=== PATIENT | male | born 1980 | race Hispanic/Latino ===

== ENCOUNTER 2024-02-10 22:22 | Emergency (ER) | payer OTHER ==
[~2024-02-10] VITALS: Ht 170.2 cm; Wt 90.7 kg
--- NOTE | 2024-02-10 22:46 | HMCIMG ---
CHEST 1VW HISTORY: Chest pain COMPARISON: None FINDINGS: A frontal projection of the chest was obtained. No acute pulmonary infiltrates is seen. The heart is normal in size. Prominent interstitial markings are seen. Degenerative changes are seen. No evidence of aortic calcification is seen. IMPRESSION: 1. No acute pulmonary infiltrate is seen.
[2024-02-10 22:50] LABS: BASOPHILS # (AUTO) 0.08 K/uL (0.00-0.20); BASOPHILS % (AUTO) 0.6 % (0.0-5.0); EOSINOPHILS # (AUTO) 1.28 K/uL (0.00-0.70); EOSINOPHILS % (AUTO) 10.2 % (0.0-8.0); HEMATOCRIT 45.8 % (42-54); IMMATURE GRANULOCYTE ABSOLUTE 0.06 K/uL (0-1); LYMPHOCYTES # (AUTO) 3.2 K/uL (1.0-4.8); LYMPHOCYTES % (AUTO) 25.3 % (21.0-51.0); MEAN CORPUSCULAR HEMOGLOBIN 28.7 pg (27.0-33.0); MEAN CORPUSCULAR HGB CONC 34.1 g/dL (32.0-36.0); MEAN CORPUSCULAR VOLUME 84.3 fL (79-99); MONOCYTES # (AUTO) 0.9 K/uL (0.1-1.0); NEUTROPHILS # (AUTO) 7.1 K/uL (1.8-7.7); NEUTROPHILS % (AUTO) 56.4 % (40.0-77.0); PLATELET COUNT (AUTO) 233 K/uL (130-400); RED BLOOD CELL COUNT(AUTO) 5.43 MIL/uL (4.50-6.20); RED CELL DISTRIBUTION WIDTH 12.9 % (11.0-15.5); WHITE BLOOD COUNT (AUTO) 12.6 K/uL (4.8-10.8)
[2024-02-10 23:03] LABS: CREATININE 0.9 mg/dL (0.5-1.3); POTASSIUM 3.9 mmol/L (3.5-5.1)
[2024-02-10 23:10] LABS: ALBUMIN 3.5 g/dL (3.5-5.0); BILIRUBIN,DIRECT 0.1 mg/dL (0.0-0.3); BILIRUBIN,TOTAL 0.3 mg/dL (0.2-1.0)
[2024-02-10 23:14] LABS: B-TYPE NATRIURETIC PEPTIDE 8 pg/mL (0-100)
[2024-02-10] MEDS ORDERED: OMEP40CA21 PO (23:19)
--- NOTE | 2024-02-10 23:20 | ERN ---
ED Note History of Present Illness Stated Complaint: CHEST PAIN,ABD PAIN, LEFT HAND " TIGHTNESS, SWELLI Chief Complaint: Multiple Complaints Time Seen by MD: 22:39 Dictation: This is a 43-year-old male who presented to the emergency room with multiple complaints including midsternal chest pain which started about an hour and a half prior to the presentation. He also reported epigastric burning after eating around 5:00 p.m.. He has taken a lot of baking soda prior to coming to the ER about 30 minutes before in order to neutralize his epigastric burning. In addition to this he also reports that his left hand feels tight. No history of any loss of consciousness, no diaphoresis palpitations No fever chills or rigors. No vomitings. Temperature 97.9 pulse 79 respirations 16 blood pressure 116/84 with a pulse oximetry of 97% on room air Patient has a known history of H pylori Allergies: Coded Allergies: No Known Allergies (Unverified Allergy, Unknown, 02/10/24) Home Meds Active Scripts Omeprazole (Omeprazole) 40 Mg Capsule.dr, 1 CAP PO DAILY for 30 Days, #30 CAP 0 Refills Prov:FRANDY RAMIREZ MD 02/10/24 Past Medical History Past Medical History: Other Additional Past Medical Hx: H PYLORI Surgical History: Other Surgical History Other: VASECTOMY Family History: Negative RN Note Reviewed/Agreed w/PFSH: Yes Review of System Dictation Constitutional: Negative for fever,chills, and weight loss Eyes: Negative for injury, pain,redness, and discharge ENT: Negative for injury,pain or swelling Cardiovascular: Negative for chest pain, palpitations, and edema Respiratory: Negative for shortness of breath, cough, and wheezing, Abdomen/GI: Positive for abdominal pain-epigastric area, denies nausea, vomiting, diarrhea, and constipation Back: Negative for injury and pain : Negative for injury, bleeding and discharge MS/Extremity: Negative for injury and deformity Skin: Negative for rash, and discoloration Neuro: Negative for headache, weakness, numbness, tingling, and seizure Psych: Negative for suicide ideation, homicidal ideation, and hallucinations Initial Vital Sign VS Vital Signs Date Time Temp Pulse Resp B/P (MAP) Pulse Ox O2 Delivery O2 Flow Rate FiO2 02/10/24 22:24 97.9 79 16 116/84 98 Room Air 02/11/24 00:48 0 21 Physical Exam Dictation General: awake, alert, NAD Head/Face: Normocephalic, atraumatic Eyes: PERRL, EOMI, vision at baseline ENT: oral cavity clear, TMs clear, no signs of infection Neck: Trachea midline, supple, no nuchal rigidity Cardiovascular: RRR, normal S1/S2, No MRGs, no JVD Respiratory: CTAB, no respiratory distress, No rales or wheezes Abdomen: Soft, non-tender, non-distended, normal bowel sounds, no guarding or rebound. Skin: Warm, dry, normal turgor, no rash MS/Extremity: Pulses equal, no cyanosis, neurovascular intact, FROM Neuro: COAx4, GCS 15, strength 5/5, CN 2-12 intact, normal cerebellar exam, normal gait, Psych: Normal behavior, mood, and affect normal Extremities-trace edema without any palpable cords, Homans sign is negative Results (Laboratory/Radiology) Laboratory/Radiology Laboratory Tests Test 02/10/24 22:43 02/10/24 23:02 02/11/24 01:18 White Blood Count 12.6 K/uL (4.8-10.8) H Red Blood Count 5.43 MIL/uL (4.50-6.20) Hemoglobin 15.6 g/dL (14.0-18.0) Hematocrit 45.8 % (42-54) Mean Corpuscular Volume 84.3 fL (79-99) Mean Corpuscular Hemoglobin 28.7 pg (27.0-33.0) Mean Corpuscular Hemoglobin Concent 34.1 g/dL (32.0-36.0) Red Cell Distribution Width 12.9 % (11.0-15.5) Platelet Count 233 K/uL (130-400) Mean Platelet Volume 9.0 fL (7.5-10.5) Immature Granulocyte % (Auto) 0.5 % (0-1) Neutrophils (%) (Auto) 56.4 % (40.0-77.0) Lymphocytes (%) (Auto) 25.3 % (21.0-51.0) Monocytes (%) (Auto) 7.0 % (3.0-13.0) Eosinophils (%) (Auto) 10.2 % (0.0-8.0) H Basophils (%) (Auto) 0.6 % (0.0-5.0) Neutrophils # (Auto) 7.1 K/uL (1.8-7.7) Lymphocytes # (Auto) 3.2 K/uL (1.0-4.8) Monocytes # (Auto) 0.9 K/uL (0.1-1.0) Eosinophils # (Auto) 1.28 K/uL (0.00-0.70) H Basophils # (Auto) 0.08 K/uL (0.00-0.20) Absolute Immature Granulocyte (auto 0.06 K/uL (0-1) Nucleated Red Blood Cells 0.0 % (0.0-0.19) Sodium Level 142 mmol/L (136-145) Potassium Level 3.9 mmol/L (3.5-5.1) Chloride Level 102 mmol/L (101-111) Carbon Dioxide Level 36 mmol/L (21-32) H Blood Urea Nitrogen 24 mg/dL (7-18) H Creatinine 0.9 mg/dL (0.5-1.3) Glomerular Filtration Rate Calc 110 mL/min (>90) Random Glucose 91 mg/dL (70-105) Total Calcium 8.7 mg/dL (8.5-10.1) Total Bilirubin 0.3 mg/dL (0.2-1.0) Direct Bilirubin 0.1 mg/dL (0.0-0.3) Aspartate Amino Transf (AST/SGOT) 17 U/L (10-37) Alanine Aminotransferase (ALT/SGPT) 33 U/L (12-78) Alkaline Phosphatase 93 U/L (50-136) Total Creatine Kinase 142 U/L (21-232) Troponin I High Sensitivity 5 ng/L (4-75) B-Type Natriuretic Peptide 8 pg/mL (0-100) Total Protein 7.0 g/dL (6.0-8.3) Albumin 3.5 g/dL (3.5-5.0) Lipase 24 U/L (16-77) Troponin I < 0.05 ng/mL (0.00-0.05) Urine Color LIGHT-YELLOW (YELLOW) Urine Appearance CLEAR (CLEAR) Urine pH 6.5 (5.0-8.0) Urine Specific [place] 1.023 (1.001-1.031) Urine Protein NEGATIVE mg/dL (NEGATIVE) Urine Glucose (UA) NEGATIVE mg/dL (NEGATIVE) Urine Ketones NEGATIVE mg/dL (NEGATIVE) Urine Occult Blood NEGATIVE (NEGATIVE) Urine Nitrate NEGATIVE (NEGATIVE) Urine Bilirubin NEGATIVE mg/dL (NEGATIVE) Urine Urobilinogen 0.2 mg/dL (0.2-1.0) Urine Leukocyte Esterase NEGATIVE Lee/uL Labs Reviewed?: Yes EKG Comment: Twelve lead EKG done on 02/10/2024 at 10:12 p.m. showed a sinus rhythm with a heart rate of 72, IL 150, QRS 93, QT/QTC 371/408 Impression normal sinus rhythm with nonspecific ST-T changes. No acute ST elevations or deep ST depressions noted. Interpreted by Dr. Ramirez X-RAY Comment: PATIENT: PAMELA JOE MR#: [id number] : 1980 SEX: M AGE: 43 LOCATION: [facility] ORDER 28 STATUS: [facility] REPORT#: [id number] SERVICE 27 REASON: CHEST PAIN ORDERING PHYSICIAN: FRANDY RAMIREZ MD PROCEDURE: CXR1VW - CHEST 1VW CHEST 1VW HISTORY: Chest pain COMPARISON: None FINDINGS: A frontal projection of the chest was obtained. No acute pulmonary infiltrates is seen. The heart is normal in size. Prominent interstitial markings are seen. Degenerative changes are seen. No evidence of aortic calcification is seen. IMPRESSION: 1. No acute pulmonary infiltrate is seen. DICTATED BY: NIDIA LUNA MD DATE: 02/10/242243 ELECTRONICALLY SIGNED BY: NIDIA LUNA MD DATE: 02/10/242245 ED Course ED Course Orders Procedure Category Date Status Time Vital Signs Per CPOE 02/10/24 Transmitted Routine 22:28 B-Type Natriuretic LAB 02/10/24 Complete Peptide 22:28 Chest 1vw RAD 02/10/24 Resulted 22:28 12 Lead Ekg Tracing- EKG 02/10/24 Logged Technical 22:28 Oxygen By Nc/Pulse Ox CPOE 02/10/24 Transmitted 22:28 Maintain Iv CPOE 02/10/24 Transmitted 22:28 Iv Insertion CPOE 02/10/24 Transmitted 22:28 Cardiac Monitoring CPOE 02/10/24 Transmitted 22:28 Pulse Oximetry With CPOE 02/10/24 Transmitted Vs And Prn 22:28 Cbc With Differential LAB 02/10/24 Complete 22:28 Activity: Br W/Brp CPOE 02/10/24 Transmitted With Assist 22:28 Creatine Kinase, Total LAB 02/10/24 Complete 22:28 Urinalysis Profile LAB 02/10/24 Complete 22:28 Troponin Poc Order LAB 02/10/24 Complete Only 22:28 Bedside Troponin-I LAB.ER 02/10/24 Complete (Poc) 22:28 Basic Metabolic Panel LAB 02/10/24 Complete 22:28 Troponin I High LAB 02/10/24 Complete Sensitivity 22:28 Lipase LAB 02/10/24 Complete 22:28 Hepatic Function Panel LAB 02/10/24 Complete 22:28 Morphine 2mg Syg PHA 02/10/24 Complete (Morphine 2mg Syg) 23:30 Ondansetron 4mg Inj PHA 02/10/24 Complete (Zofran 4mg Inj) 23:30 Lidocaine Hcl 2% PHA 02/10/24 Complete Viscous (Lidocaine Hcl 23:30 Mag/Alum/Simeth 30ml PHA 02/10/24 Complete (Maalox Plus 30ml) 23:30 Pantoprazole 40mg Inj PHA 02/10/24 Complete (Protonix 40mg Inj 23:30 Dicyclomine Hcl PHA 02/10/24 Complete (Bentyl 10mg/5ml 23:30 Current Medications Medications (Trade) Dose Ordered Sig/Stormy Route PRN Reason Start Time Stop Time Status Last Admin Dose Admin Al Hydroxide/Mg Hydroxide (MAALox PLUS 30ML) 30 ml ONCE ONCE PO 02/10/24 23:30 02/11/24 01:35 DC 02/11/24 00:50 Dicyclomine HCl (Bentyl 10mg/5ml Syrup) 10 mg ONCE ONCE PO 02/10/24 23:30 02/11/24 01:35 DC 02/11/24 00:51 Lidocaine HCl (Lidocaine HCl 2% Viscous) 10 ml ONCE ONCE PO 02/10/24 23:30 02/11/24 01:35 DC 02/11/24 00:50 Morphine Sulfate (morPHINE 2MG SYG) 2 mg ONCE ONCE IVP 02/10/24 23:30 02/11/24 01:35 DC Ondansetron HCl (zoFRAN 4MG INJ) 4 mg ONCE ONCE IVP 02/10/24 23:30 02/11/24 01:35 DC 02/11/24 00:49 Pantoprazole Sodium (PROTonix 40MG INJ) 40 mg ONCE ONCE IVP 02/10/24 23:30 02/11/24 01:35 DC 02/11/24 00:49 Vital Signs Date Time Temp Pulse Resp B/P (MAP) Pulse Ox O2 Delivery O2 Flow Rate FiO2 02/11/24 01:34 97.2 64 20 117/61 100 Room Air* 0 21 02/11/24 00:48 97.9 66 18 114/63 100 Room Air* 0 21 02/10/24 22:24 97.9 79 16 116/84 98 Room Air We will perform diagnostic labs, advanced imaging and administer medications according to the patient's complaint. Once the results are available, will review and personally interpreted the labs to rule out any acute life- threatening emergency the trach require immediate intervention and treatment. I will then re-evaluate the patient after treatment and diagnostic exams have return to determine whether the patient requires any further testing, can safely be discharged home or need further admission to hospital for additional treatment and evaluation. 11:05 p.m. CBC shows a WBC count of 12.6, BNP 7 showed a bicarbonate of 36, lipase 24 troponins are negative. Chest x-ray is negative for any acute infiltrate. I went over the labs and warned him that his bicarbonate is very elevated with him over indulging on baking soda for his stomach upset. We will give him a trial of PPI and GI cocktail . He felt significantly improved. I counseled him extensively on GERD precautions including avoidance of spicy greasy fatty foods, citrus she beverages, maintaining sleep hygiene, elevation of the head of the bed, not sleeping immediately after eating. He verbalized full understanding Medical Decision Making MDM MDM: Differential diagnosis: Gastroesophageal reflux disease, peptic ulcer disease, dyspepsia, esophagitis Rationale: Tests considered and ordered secondary to shared decision making include: Previous outside records reviewed: Old ER visits. Risk of complication and/or morbidity or mortality of patient management: None Medications-Per medication reconciliation Need for hospitalization: Patient does not meet criteria for hospitalization. Need for emergency major/minor surgery: No There are no social concerns with this patient. Prescription drug management Prescriptions will include symptomatic care Patient's prior external medical records from other ER visits were reviewed by me as indicated. Prior testing and results from previous visits were reviewed. Prior tests were taken into account with medical decision making and resource utilization, independent historian/historians were used to obtain complete medical history. I independently interpreted the test that were performed, results were reviewed by me and considered findings on radiology if ordered. Medical management and examination interpretation discussions were had by me with other qualified healthcare professionals as indicated for the patient's care. Problem List Problem List: (1) Gastritis (2) H. pylori infection (3) Gastroesophageal reflux disease DX & DISP Disposition: Discharge Departure Impression: Primary Impression: Gastritis Additional Impressions: H. pylori infection, Gastroesophageal reflux disease Condition: Stable Scripts Omeprazole (Omeprazole) 40 Mg Capsule.dr 1 CAP PO DAILY for 30 Days, #30 CAP 0 Refills Prov: FRANDY RAMIREZ MD 02/10/24 Additional Instructions: Patient and the caregiver have been informed of all the diagnostic tests and the imaging conducted during the today's visit to the emergency room and has verbalized understanding of the results I have personally reviewed and interpreted all diagnostic exams performed here in the ER today as well as the vital signs documented by the nursing staff. The patient is now being discharged to home and should follow up with the primary care physician or the specialist as directed by the ER staff. Follow-up with primary care provider in 1 to 2 days. Take medications as directed here in the emergency room. Okay to continue home medications unless otherwise discussed during your visit in the emergency room today. Return to your nearest emergency room if symptoms worsen or if there is no improvement. Call 911 if you need immediate assistance. Take Tylenol or Motrin [id number] as needed and if no contraindications are present. Increase oral hydration. A wound culture or urine culture was ordered here in the [facility] room department please follow-up with primary care provider and advise them to get repeat ports from our facility. If you had any Jean Claude wrap/splints that were applied here, please do not remove them until you see your primary care or specialty. FRANDY RAMIREZ MD Feb 10, 2024 23:20
[2024-02-11] MEDS: ondanSETRON 4MG INJ IVP ONE (00:49)
[2024-02-11] MEDS: PANTOPrazole 40 MG/VIAL IVP ONE (00:49)
[2024-02-11] MEDS: LIDOCAINE HCL 2% VISCOUS 15 ML UDCUP PO ONE (00:50)
[2024-02-11] MEDS: MAG/ALUM/SIMETH 30 ML UDCUP PO ONE (00:50)
[2024-02-11] MEDS: DICYCLOMINE HCL 10 MG/5 ML ML PO ONE (00:51)
[2024-02-11] MEDS: morPHINE 2 MG SYG IVP ONE (00:51)
[2024-02-11 01:30] LABS: APPEARANCE,URINE CLEAR (CLEAR); BILIRUBIN,URINE NEGATIVE (NEGATIVE); COLOR,URINE LIGHT-YELLOW (YELLOW); GLUCOSE, URINE (UA) NEGATIVE (NEGATIVE); KETONES,URINE NEGATIVE (NEGATIVE); LEUKOCYTE ESTERASE ,URINE NEGATIVE Leu/uL (NEGATIVE); NITRATE,URINE NEGATIVE (NEGATIVE); OCCULT BLOOD,URINE NEGATIVE (NEGATIVE); PH,URINE 6.5 (5.0-8.0); PROTEIN,URINE NEGATIVE (NEGATIVE); UROBILINOGEN,URINE 0.2 mg/dL (0.2-1.0)
[2024-02-11 01:34] VITALS: BP 117/61; PULSE 64; RESP 20; TEMP 97.1; O2SAT 100
[2024-02-11 01:35] LABS: ADD UA MICROSCOPIC NO
--- NOTE | 2024-02-11 06:35 | EKG ---
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
== END 2024-02-11 01:35 | disposition home or self-care (01) ==
LOC: EDH 22:22
DX: K29.70 Gastritis, unspecified, without bleeding (principal); B96.81 Helicobacter pylori [H. pylori] as the cause of diseases classified elsewhere; K21.9 Gastro-esophageal reflux disease without esophagitis; Z79.899 Other long term (current) drug therapy
CPT/HCPCS: 99285; 71045; 82550; 80076; 84484 ×2; 80048; 83880; 83690; 85025; 81003; 36415; 93005; 96374; 96375; J2270; J2405; J2470

== ENCOUNTER 2024-07-19 21:59 | Emergency (ER) | payer OTHER ==
[~2024-07-19] VITALS: Ht 170.2 cm; Wt 93.4 kg
[~2024-07-19 21:59] MED LIST: OMEP40CA21 PO
--- NOTE | 2024-07-19 22:04 | NUR ---
UA CUP PROVIDED
[2024-07-19 23:09] LABS: BASOPHILS # (AUTO) 0.04 K/uL (0.00-0.20); BASOPHILS % (AUTO) 0.5 % (0.0-5.0); EOSINOPHILS # (AUTO) 0.19 K/uL (0.00-0.70); EOSINOPHILS % (AUTO) 2.3 % (0.0-8.0); HEMATOCRIT 46.1 % (42-54); IMMATURE GRANULOCYTE ABSOLUTE 0.02 K/uL (0-1); LYMPHOCYTES # (AUTO) 3.3 K/uL (1.0-4.8); LYMPHOCYTES % (AUTO) 40.5 % (21.0-51.0); MEAN CORPUSCULAR HEMOGLOBIN 28.2 pg (27.0-33.0); MEAN CORPUSCULAR HGB CONC 32.8 g/dL (32.0-36.0); MEAN CORPUSCULAR VOLUME 86.2 fL (79-99); MONOCYTES # (AUTO) 0.9 K/uL (0.1-1.0); MONOCYTES % (AUTO) 10.6 % (3.0-13.0); NEUTROPHILS # (AUTO) 3.7 K/uL (1.8-7.7); NEUTROPHILS % (AUTO) 45.9 % (40.0-77.0); PLATELET COUNT (AUTO) 229 K/uL (130-400); RED BLOOD CELL COUNT(AUTO) 5.35 MIL/uL (4.50-6.20); RED CELL DISTRIBUTION WIDTH 12.8 % (11.0-15.5); WHITE BLOOD COUNT (AUTO) 8.2 K/uL (4.8-10.8)
[2024-07-19 23:22] LABS: CREATININE 0.8 mg/dL (0.5-1.3); POTASSIUM 3.8 mmol/L (3.5-5.1)
[2024-07-19 23:27] LABS: ADD UA MICROSCOPIC NO; APPEARANCE,URINE CLEAR (CLEAR); BILIRUBIN,URINE NEGATIVE (NEGATIVE); COLOR,URINE COLORLESS (YELLOW); GLUCOSE, URINE (UA) NEGATIVE (NEGATIVE); KETONES,URINE NEGATIVE (NEGATIVE); LEUKOCYTE ESTERASE ,URINE NEGATIVE Leu/uL (NEGATIVE); NITRATE,URINE NEGATIVE (NEGATIVE); OCCULT BLOOD,URINE NEGATIVE (NEGATIVE); PH,URINE 5.5 (5.0-8.0); PROTEIN,URINE NEGATIVE (NEGATIVE); UROBILINOGEN,URINE 0.2 mg/dL (0.2-1.0)
[2024-07-19 23:36] LABS: B-TYPE NATRIURETIC PEPTIDE < 5 pg/mL (0-100)
[2024-07-20 00:30] VITALS: BP 126/72; PULSE 79; RESP 15; TEMP 98.5; O2SAT 100
[2024-07-20] MEDS ORDERED: HYDR-3421 PO (00:44)
--- NOTE | 2024-07-20 00:47 | ERN ---
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 PATIENT STATES IT ISN'T THE 1ST EPISODE THAT THIS HAS BEEN GOING ON INTERMITTENTLY FOR THE PAST YEAR. PATIENT STATES IT ALL BEGAN WITH A WORK-RELATED STRESS AND SINCE THEN HAS BEEN HAVING INTERMITTENT IN FEELINGS OF PALPITATIONS AND CHEST PRESSURE. PATIENT STATES HE WAS SEEN ON SUNDAY AT [place] AND THEN THEY TOLD [facility]. ALSO STATES HE DRINKS CAFFEINATED BEVERAGES Allergies: Coded Allergies: No Known Allergies (Unverified Allergy, Unknown, 02/10/24) Home Meds Active Scripts Omeprazole (Omeprazole) 40 Mg Capsule.dr, 1 CAP PO DAILY for 30 Days, #30 CAP 0 Refills Prov:FRANDY RAMIREZ MD 02/10/24 Past Medical History Past Medical History: Other Additional Past Medical Hx: H PYLORI Surgical History: Other Surgical History Other: VASECTOMY Family History: Negative Review of System Dictation CONSTITUTIONAL: NEGATIVE FOR FEVER,CHILLS, AND WEIGHT LOSS EYES: NEGATIVE FOR INJURY, PAIN,REDNESS, AND DISCHARGE ENT: NEGATIVE FOR INJURY,PAIN OR SWELLING CARDIOVASCULAR: COMPLAINING OF CHEST PAIN AND PALPITATIONS RESPIRATORY: NEGATIVE FOR SHORTNESS OF BREATH, COUGH, AND WHEEZING, ABDOMEN/GI: NEGATIVE FOR ABDOMINAL PAIN, NAUSEA, VOMITING, DIARRHEA, AND CONSTIPATION BACK: NEGATIVE FOR INJURY AND PAIN : NEGATIVE FOR INJURY, BLEEDING AND DISCHARGE MS/EXTREMITY: NEGATIVE FOR INJURY AND DEFORMITY SKIN: NEGATIVE FOR RASH, AND DISCOLORATION NEURO: NEGATIVE FOR HEADACHE, WEAKNESS, NUMBNESS, TINGLING, AND SEIZURE PSYCH: NEGATIVE FOR SUICIDE IDEATION, HOMICIDAL IDEATION, AND HALLUCINATIONS Review of Systems: was completed Initial Vital Sign VS Vital Signs Date Time Temp Pulse Resp B/P (MAP) Pulse Ox O2 Delivery O2 Flow Rate FiO2 07/19/24 22:00 98.1 87 20 143/80 100 Room Air Physical Exam Dictation GENERAL: AWAKE, ALERT, NAD HEAD/FACE: NORMOCEPHALIC, ATRAUMATIC EYES: PERRL, EOMI, VISION AT BASELINE ENT: ORAL CAVITY CLEAR, TMS CLEAR, NO SIGNS OF INFECTION NECK: TRACHEA MIDLINE, SUPPLE, NO NUCHAL RIGIDITY CARDIOVASCULAR: RRR, NORMAL S1/S2, NO MRGS, NO JVD RESPIRATORY: CTAB, NO RESPIRATORY DISTRESS, NO RALES OR WHEEZES ABDOMEN: SOFT, NON-TENDER, NON-DISTENDED, NORMAL BOWEL SOUNDS, NO GUARDING OR REBOUND. SKIN: WARM, DRY, NORMAL TURGOR, NO RASH MS/EXTREMITY: PULSES EQUAL, NO CYANOSIS, NEUROVASCULAR INTACT, FROM NEURO: COAX4, GCS 15, STRENGTH 5/5, CN 2-12 INTACT, NORMAL CEREBELLAR EXAM, NORMAL GAIT, PSYCH: NORMAL BEHAVIOR, MOOD, AND AFFECT NORMAL Results (Laboratory/Radiology) Laboratory/Radiology Laboratory Tests Test 07/19/24 22:40 07/19/24 22:46 Urine Color COLORLESS (YELLOW) Urine Appearance CLEAR (CLEAR) Urine pH 5.5 (5.0-8.0) Urine Specific [place] 1.010 (1.001-1.031) Urine Protein NEGATIVE mg/dL (NEGATIVE) Urine Glucose (UA) NEGATIVE mg/dL (NEGATIVE) Urine Ketones NEGATIVE mg/dL (NEGATIVE) Urine Occult Blood NEGATIVE (NEGATIVE) Urine Nitrate NEGATIVE (NEGATIVE) Urine Bilirubin NEGATIVE mg/dL (NEGATIVE) Urine Urobilinogen 0.2 mg/dL (0.2-1.0) Urine Leukocyte Esterase NEGATIVE Lee/uL White Blood Count 8.2 K/uL (4.8-10.8) Red Blood Count 5.35 MIL/uL (4.50-6.20) Hemoglobin 15.1 g/dL (14.0-18.0) Hematocrit 46.1 % (42-54) Mean Corpuscular Volume 86.2 fL (79-99) Mean Corpuscular Hemoglobin 28.2 pg (27.0-33.0) Mean Corpuscular Hemoglobin Concent 32.8 g/dL (32.0-36.0) Red Cell Distribution Width 12.8 % (11.0-15.5) Platelet Count 229 K/uL (130-400) Mean Platelet Volume 9.1 fL (7.5-10.5) Immature Granulocyte % (Auto) 0.2 % (0-1) Neutrophils (%) (Auto) 45.9 % (40.0-77.0) Lymphocytes (%) (Auto) 40.5 % (21.0-51.0) Monocytes (%) (Auto) 10.6 % (3.0-13.0) Eosinophils (%) (Auto) 2.3 % (0.0-8.0) Basophils (%) (Auto) 0.5 % (0.0-5.0) Neutrophils # (Auto) 3.7 K/uL (1.8-7.7) Lymphocytes # (Auto) 3.3 K/uL (1.0-4.8) Monocytes # (Auto) 0.9 K/uL (0.1-1.0) Eosinophils # (Auto) 0.19 K/uL (0.00-0.70) Basophils # (Auto) 0.04 K/uL (0.00-0.20) Absolute Immature Granulocyte (auto 0.02 K/uL (0-1) Nucleated Red Blood Cells 0.0 % (0.0-0.19) Sodium Level 139 mmol/L (136-145) Potassium Level 3.8 mmol/L (3.5-5.1) Chloride Level 104 mmol/L (101-111) Carbon Dioxide Level 28 mmol/L (21-32) Blood Urea Nitrogen 26 mg/dL (7-18) H Creatinine 0.8 mg/dL (0.5-1.3) Glomerular Filtration Rate Calc 114 mL/min (>90) Random Glucose 91 mg/dL (70-105) Total Calcium 8.2 mg/dL (8.5-10.1) L Total Creatine Kinase 110 U/L (21-232) # Troponin I High Sensitivity < 4 ng/L (4-75) L B-Type Natriuretic Peptide < 5 pg/mL (0-100) Labs Reviewed?: Yes EKG Comment: EKGS DONE AT 10:00 P.M., SINUS RHYTHM AT A RATE OF 82 BEATS PER MINUTE. NORMAL ECG, NO STEMI INTERPRETED BY ER MD ED Course ED Course Orders Procedure Category Date Status Time Vital Signs Per CPOE 07/19/24 Transmitted Routine 22:04 B-Type Natriuretic LAB 07/19/24 Complete Peptide 22:04 Chest 1vw RAD 07/19/24 Taken 22:04 12 Lead Ekg Tracing- EKG 07/19/24 Logged Technical 22:04 Oxygen By Nc/Pulse Ox CPOE 07/19/24 Transmitted 22:04 Maintain Iv CPOE 07/19/24 Transmitted 22:04 Iv Insertion CPOE 07/19/24 Transmitted 22:04 Cardiac Monitoring CPOE 07/19/24 Transmitted 22:04 Pulse Oximetry With CPOE 07/19/24 Transmitted Vs And Prn 22:04 Cbc With Differential LAB 07/19/24 Complete 22:04 Activity: Br W/Brp CPOE 07/19/24 Transmitted With Assist 22:04 Creatine Kinase, Total LAB 07/19/24 Complete 22:04 Troponin I High LAB 07/19/24 Complete Sensitivity 22:04 Urinalysis Profile LAB 07/19/24 Complete 22:04 Basic Metabolic Panel LAB 07/19/24 Complete 22:04 Hydroxyzine 50mg Vial PHA 07/19/24 Complete (Atarax 50mg Inj) 23:31 Drug Screen Urine LAB 07/20/24 Logged 00:35 Current Medications Medications (Trade) Dose Ordered Sig/Stormy Route PRN Reason Start Time Stop Time Status Last Admin Dose Admin Hydroxyzine HCl (ATArax 50MG INJ) 25 mg ONCE STAT IM 07/19/24 23:31 07/19/24 23:34 DC Vital Signs Date Time Temp Pulse Resp B/P (MAP) Pulse Ox O2 Delivery O2 Flow Rate FiO2 07/19/24 22:00 98.1 87 20 143/80 100 Room Air HEART Score Response (Comments) Value History: Low suspicion (0) 0 EKG: Normal 0 Age: < 45yrs (0) 0 Risk Factors: No known risk factors (0) 0 Total 0 Medical Decision Making MDM MDM: 43-YEAR-OLD MALE WITH NO PAST MEDICAL HISTORY COMING IN COMPLAINING OF FEELING CHEST PRESSURE AND PALPITATIONS WHILE HE WAS AT A BIRTHDAY CONSTITUTION PARTY. PATIENT STATES IT ISN'T THE 1ST EPISODE THAT THIS HAS BEEN GOING ON INTERMITTENTLY FOR THE PAST YEAR. PATIENT STATES IT ALL BEGAN WITH A WORK- RELATED STRESS AND SINCE THEN HAS BEEN HAVING INTERMITTENT IN FEELINGS OF PALPITATIONS AND CHEST PRESSURE. PATIENT STATES HE WAS SEEN ON SUNDAY AT [place] AND THEN THEY TOLD HIM TO [place]. ALSO STATES HE DRINKS CAFFEINATED BEVERAGES BLOOD WORK UNREMARKABLE. EKGS SHOWS NO ST ELEVATION OR DYSRHYTHMIAS. CHEST X-RAY WITHIN NORMAL LIMITS INTERPRETED BY ME. HEART SCORE OF 0. PATIENT WILL BE DISCHARGED HOME WITH HYDROXYZINE P.R.N. FOR ANXIETY AND HAVE PATIENT FOLLOW UP WITH THE [place] AND C[place]IOLOGY. DIFFERENTIAL DIAGNOSIS: DC, ANXIETY, COSTOCHONDRITIS RATIONALE: TESTS CONSIDERED AND ORDERED SECONDARY TO SHARED DECISION MAKING INCLUDE: PREVIOUS OUTSIDE RECORDS REVIEWED: OLD ER VISITS. RISK OF COMPLICATION AND/OR MORBIDITY OR MORTALITY OF PATIENT MANAGEMENT: NONE MEDICATIONS-PER MEDICATION RECONCILIATION NEED FOR HOSPITALIZATION: PATIENT DOES NOT MEET CRITERIA FOR HOSPITALIZATION. NEED FOR EMERGENCY MAJOR/MINOR SURGERY: NO THERE ARE NO SOCIAL CONCERNS WITH THIS PATIENT. PRESCRIPTION DRUG MANAGEMENT PRESCRIPTIONS WILL INCLUDE SYMPTOMATIC CARE PATIENT'S PRIOR EXTERNAL MEDICAL RECORDS FROM OTHER ER VISITS WERE REVIEWED BY ME INDICATED. PRIOR TESTING AND RESULTS FROM PREVIOUS VISITS WERE REVIEWED. PRIOR TESTS WERE TAKEN INTO ACCOUNT WITH MEDICAL DECISION MAKING AND RESOURCE UTILIZATION, INDEPENDENT HISTORIAN/HISTORIANS WERE USED TO OBTAIN COMPLETE MEDICAL HISTORY. I INDEPENDENTLY INTERPRETED THE TEST THAT WERE PERFORMED, RESULTS WERE REVIEWED BY ME AND CONSIDERED FINDINGS ON RADIOLOGY IF ORDERED. MEDICAL MANAGEMENT AND EXAMINATION INTERPRETATION DISCUSSIONS WERE HAD BY ME WITH OTHER QUALIFIED HEALTHCARE PROFESSIONALS INDICATED FOR THE PATIENT'S CARE. DX & DISP Disposition: Discharge Departure Impression: Primary Impression: Chest pain Additional Impression: Anxiety Condition: Stable Scripts Hydroxyzine HCl (Hydroxyzine HCl) 25 Mg Tablet 1 TAB PO BID for anxiety for 15 Days, #30 TAB 0 Refills Prov: ROLANDA HUTTON VIAL GAUGER 07/20/24 Referrals: SELF,REFERRAL (PCP) Time of Disposition: 00:44 I have reviewed the case, and I agree with, Diagnosis and Plan ROLANDA HUTTON VIAL GAUGER July 20, 2024 00:47
[2024-07-20] MEDS: hydrOXYzine 50MG VIAL 50 MG/ML VIAL IM STA (01:00)
[2024-07-20 01:03] LABS: AMPHET/METH SCREEN,URINE NEGATIVE (NEGATIVE); BARBITURATE SCREEN, URINE NEGATIVE (NEGATIVE); BENZODIAZEPINES SCREEN,URINE NEGATIVE (NEGATIVE); CANNABINOID SCREEN,URINE NEGATIVE (NEGATIVE); COCAINE SCREEN,URINE NEGATIVE (NEGATIVE); OPIATE SCREEN,URINE NEGATIVE (NEGATIVE); PHENCYCLIDINE SCREEN,URINE NEGATIVE (NEGATIVE)
--- NOTE | 2024-07-20 08:25 | HMCIMG ---
Exam Type: CHEST 1VW Clinical Information: CHEST PAIN Comparison: None Findings: The lungs are clear of infiltrates. The heart is normal in size. The bony and soft tissue structures of the chest are unremarkable. Impression: Clear lungs.
--- NOTE | 2024-07-20 15:38 | EKG ---
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 : 1980 Requested By: FRANDY RAMIREZ Order Number: [id number] Reading MD: Luis Eduardo Rodriguez Measurements Intervals [place] Rate: 82 P: 48 ID: [id number] QRS: -4 QRSD: 88 T: 23 QT: 358 QTc: 418 Interpretive Statements Sinus rhythm Compared to ECG 02/10/2024 22:12:26 No significant changes Electronically Signed On 07-20-2024 17:25:36 CDT by Luis Eduardo Rodriguez Please click the below link to view image of tracing.
== END 2024-07-20 01:15 | disposition home or self-care (01) ==
LOC: EDH 21:59
DX: F41.9 Anxiety disorder, unspecified (principal); R07.89 Other chest pain; Z79.899 Other long term (current) drug therapy; Z98.890 Other specified postprocedural states
CPT/HCPCS: 99285; 71045; 82550; 84484; 80048; 83880; 80305; 85025; 36415; 93005; 81003; 96372; J3410